=== PATIENT | male | born 2000 | race Caucasian/White ===

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

== ENCOUNTER 2018-03-12 17:26 | Emergency (ER) | payer OTHER ==
[~2018-03-12] VITALS: Ht 175.3 cm; Wt 74.8 kg
[2018-03-12 18:59] LABS: ABSOLUTE BASOPHIL COUNT 0 /CUMM (0.0-0.2); ABSOLUTE EOSINOPHIL COUNT 0.1 /CUMM (0.0-0.7); ABSOLUTE GRANULOCYTE CT 3.4 /CUMM (1.4-6.5); ABSOLUTE LYMPH COUNT 3.8 /CUMM (1.2-3.4); ABSOLUTE MONOCYTE COUNT 0.8 /CUMM (0.10-0.60); BASOPHIL % 0.3 % (0.0-2.0); EOSINOPHIL % 1.8 % (0-5); GRANULOCYTE % 41.5 % (42.2-75.2); HEMATOCRIT 46.2 % (42-52); MEAN CORPUSCULAR HGB CONC 33.4 G/DL (33.0-37.0); MEAN CORPUSCULAR VOLUME 83.8 FL (80.0-94.0); MEAN PLATELET VOLUME 9.5 FL (7.4-10.4); PLATELET COUNT 209 /CUMM (130-400); RBC DISTRIBUTION WIDTH 14.5 % (11.5-14.5); RED BLOOD CELL CT 5.51 /CUMM (4.70-6.10); WHITE BLOOD CELL COUNT 8.1 /CUMM (4.8-10.8)
--- NOTE | 2018-03-12 19:02 | ED GENERAL ADULT ---
History of Present Illness General Chief Complaint: Lower Extremity Problems Stated Complaint: "R KNEE IS DEFORMED" Source: patient Exam Limitations: no limitations Vital Signs & Intake/Output Vital Signs & Intake/Output Vital Signs Date Time Temp Pulse Resp B/P B/P Pulse O2 O2 Flow FiO2 Mean Ox Delivery Rate 03/126 98 Room Air 03/12 1847 112 18 139/80 98 Room Air 03/12 1743 99.3 142 20 160/94 99 Room Air Allergies Coded Allergies: No Known Allergies (10/14/17) Reconcile Medications No Known Home Medications Triage Note: 18 YEAR OLD MALE AMBULATED TO TRIAGE, ALERT AND ORIENTED, COLOR PALE, PT COMPLAINS OF 2 DAYS OF L SIDE FLANK/ABD PAIN THAT RADIATES INTO HIS GROIN AND STATES THAT HIS R UPPER THIGH IS SWOLLEN AND PAINFUL, PT WAS LIFTING THE OTHER DAY FELT A POP IN HIS L SIDE FLANK AREA. HR 142 AT TRIAGE TEMP 99.3 PT TO EKG [place] Triage Nurses Notes Reviewed? yes HPI: 18 y/o male presents with 1 day of low back pain, abdominal pain, and left lower extremity pain. Onset was after lifting a very heavy trailer felt something pop in his back and his stomach and since then has had continued pain, difficulty walking, and decreased sensation of his lower extremities. Denies nausea vomiting constipation diarrhea. Past History Travel History Traveled to [place] past 21 day No Medical History Any Pertinent Medical History? 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 No Review of Systems Review of Systems Constitutional: Reports: no symptoms. EENTM: Reports: no symptoms. Respiratory: Reports: no symptoms. Cardiovascular: Reports: no symptoms. GI: Reports: no symptoms, abdominal pain. Genitourinary: Reports: no symptoms. Musculoskeletal: Reports: no symptoms, back pain. Skin: Reports: no symptoms. Neurological/Psychological: Reports: no symptoms, numbness, paresthesia. Hematologic/Endocrine: Reports: no symptoms. Immunologic/Allergic: Reports: no symptoms. All Other Systems: Reviewed and Negative Physical Exam Physical Exam General Appearance: well developed/nourished, no apparent distress Head: atraumatic, normal appearance Neck: supple, full range of motion Respiratory: normal breath sounds, no respiratory distress, lungs clear Cardiovascular: regular rate/rhythm Gastrointestinal: normal bowel sounds, soft, Bed side FAST exam negative for free fluid. Rectal: decreased tone Back: vertebral tenderness, decreased range of motion, muscle spasm Extremities: normal inspection Neurologic/Psych: Decreased dermatomal sensation lower extremities bilaterally. Reflexes: 3+: knee (R), knee (L), ankle (R), ankle (L). Skin: intact, normal color Core Measures ACS in differential dx? No CVA/TIA Diagnosis: No Sepsis Present: No Sepsis Focused Exam Completed? No Progress Differential Diagnoses I considered the following diagnoses in my evaluation of the patient: Cauda equina syndrome, back pain, pulled muscle, malingering. Plan of Care: Orders Procedure Date/time Status LACTIC ACID 03/12 2046 Active MRI-LUMBAR SPINE 03/12 1828 Active URINALYSIS 03/12 1746 Complete LACTIC ACID 03/12 174 Complete D-DIMER 03/12 1746 Complete COMPREHENSIVE METABOLIC PANEL 03/12 174 Complete CBC WITHOUT DIFFERENTIAL 03/12 1746 Complete EKG 03/12 1746 Active Laboratory Tests 03/12/18 193: Urine Color YEL, Urine Clarity CLEAR, Urine pH 6.5, Ur Specific [place] 1.010, Urine Protein TRACE H, Urine Ketones NEG, Urine Nitrite NEG, Urine Bilirubin NEG, Urine Urobilinogen 0.2, Ur Leukocyte Esterase TRACE H, Ur Microscopic SEDIMENT EXAMINED, Urine WBC RARE, Urine Bacteria RARE H, Urine Hemoglobin NEG, Urine Glucose NEG 03/12/18 1757: Anion Gap 8, Estimated GFR > 60, BUN/Creatinine Ratio 15.6, Glucose 116 H, Lactic Acid 1.3, Calcium 9.4, Total Bilirubin 0.6, AST 24, ALT 32, Alkaline Phosphatase 74, Total Protein 7.6, Albumin 4.5, Globulin 3.1, Albumin/Globulin Ratio 1.5, D-Dimer High Sensitivty < 200, CBC w Diff NO MAN DIFF REQ, RBC 5.51, MCV 83.8, MCH 28.0, MCHC 33.4, RDW 14.5, MPV 9.5, Gran % 41.5 L, Lymphocytes % 46.9, Monocytes % 9.5 H, Eosinophils % 1.8, Basophils % 0.3, Absolute Granulocytes 3.4, Absolute Lymphocytes 3.8 H, Absolute Monocytes 0.8 H, Absolute Eosinophils 0.1, Absolute Basophils 0 Initial ED EKG: none Departure Departure Disposition: HOME OR SELF CARE Condition: Stable Clinical Impression Primary Impression: Low back pain Qualifiers: Chronicity: acute Back pain laterality: midline Sciatica presence: without sciatica Qualified Code: M54.5 - Low back pain Referrals: Patient Has No Primary Care Dr (PCP/Family) Departure Forms: Customer Survey General Discharge Information Prescriptions: Current Visit Scripts No Known Home Medications Critical Care Note Critical Care Note Critical Care Time: non-applicable
--- NOTE | 2018-03-12 19:38 | CT SCAN REPORT ---
EXAMINATION: CT LUMBAR SPINE WITH CONTRAST CLINICAL INFORMATION: Cauda equina syndrome back pain and decreased lower extremity sensation. COMPARISON: Lumbar spine radiographs 09/25/2017. TECHNIQUE: Sales Support Consultant images were obtained. CT acquisition of the lumbar spine was performed after the intravenous administration of 95 mL Optiray 320. No adverse contrast reaction was reported. DLP: 292.5 mGy-cm FINDINGS: Alignment is normal. Vertebral heights are preserved. There is mild irregularity of the upper S1 endplate. There is no acute fracture. Intervertebral disc spaces are maintained at all levels. Annular contours are normal. Grossly no evidence of canal or neuroforaminal compromise. Limited visualization of the retroperitoneal structures reveals no abnormal finding. Psoas and paraspinal muscle groups are symmetric. IMPRESSION: Mild irregularity of the upper S1 endplate. Otherwise unremarkable lumbar spine CT scan. No evidence of acute fracture and no spinal subluxation.
[2018-03-12] MEDS ORDERED: CYCLOBENZAPRINE5 M2 PO (20:03)
[2018-03-12] MEDS ORDERED: NAPROXEN500 M2 PO (20:03)
[2018-03-12 20:30] VITALS: BP 114/60
== END 2018-03-12 20:49 ==
LOC: ERH 17:26
PROVIDERS: Physician Assistant Medical
DX: M54.5 Low back pain (principal)
CPT/HCPCS: 81001; 93005; 93010